=== PATIENT | female | born 1995 | race Hispanic/Latino ===

== ENCOUNTER 2016-09-24 17:43 | Emergency (ER) | payer OTHER ==
[~2016-09-24] VITALS: Ht 170.2 cm; Wt 53.8 kg
[2016-09-24 18:11] LABS: HEMATOCRIT 37.4 % (36.0-46.0); MCH 26.5 PG (29.0-34.0); MCHC 31.6 G/DL (30.0-36.0); MEAN PLAT.VOLUME 10.6 uM^3 (9.5-12.4); PLATELET COUNT 276 K/uL (156-360); RBC DIS.WIDTH-CV 14.4 % (11.8-14.6); RBC DIS.WIDTH-SD 43.7 % (39-53); RED BLOOD COUNT 4.45 M/uL (3.80-5.20); WHITE BLOOD COUNT 8.9 K/uL (4.1-10.2)
[2016-09-24 18:13] LABS: ADD MIUA? NO; BILIRUBIN NEGATIVE; BLOOD NEGATIVE; COLOR YELLOW ((YELLOW)); GLUCOSE (STRIP) NEGATIVE; KETONES NEGATIVE; LEUKOCYTES NEGATIVE; NITRITE NEGATIVE; PROTEIN (STRIP) NEGATIVE; SPECIFIC GRAVITY 1.027 (1.000-1.030); UCUL ADDED? NO; UROBILINOGEN 0.2 MG/DL (0.2-1.0)
[2016-09-24 20:51] VITALS: BP 131/73
== END 2016-09-24 20:53 | disposition home or self-care (01) ==
LOC: EME 17:43
DX: O20.0 Threatened abortion (principal); Z3A.01 Less than 8 weeks gestation of pregnancy; O99.331 Smoking (tobacco) complicating pregnancy, first trimester; F17.200 Nicotine dependence, unspecified, uncomplicated
CPT/HCPCS: 76801; 81003; 84702; 85027; 86900; 86901; 99281; 99284

== ENCOUNTER 2016-09-29 01:20 | Emergency (ER) | payer OTHER ==
[~2016-09-29] VITALS: Ht 170.2 cm; Wt 55.1 kg
[2016-09-29 04:19] VITALS: BP 136/74
== END 2016-09-29 04:20 | disposition home or self-care (01) ==
LOC: EME 01:20
DX: Z36 Encounter for antenatal screening of mother (principal); Z3A.00 Weeks of gestation of pregnancy not specified
CPT/HCPCS: 84702; 99281; 99283